=== PATIENT | male | born 1960 | race African-American/Black ===

== ENCOUNTER 2017-04-08 17:38 | Emergency (ER) | payer OTHER ==
[~2017-04-08] VITALS: Ht 185.4 cm; Wt 90.7 kg
--- NOTE | 2017-04-08 17:33 | Emergency Room Report ---
History of Present Illness General Chief Complaint: Abdominal Pain Source: Patient Present Illness HPI 56-year-old male presents to the emergency department complaining of nausea vomiting with cramping abdominal pain just prior to episodes of vomiting since this afternoon. Patient denies fevers, chills, constipation or diarrhea. Patient denies blood in the vomit or stool he denies dark tarry stools. Patient denies abdominal tenderness. Patient states that he did have recent dental procedures done and has been taking Motrin. Patient reports that after vomiting he felt sweaty and continued to feel nauseous and had dry heaving. Patient denies ill contacts or recent travel. Denies cardiac history . Denies CP, Palpitations, LOC, AMS, dizziness, Changes in Vision, Sensation, paresthesias, or a sudden severe headache. Allergies: Coded Allergies: No Known Allergies (Unverified , 04/08/17) Patient History Past Medical History: see triage record Past Surgical History: none Pertinent Family History: none Reviewed Nursing Documentation: PMH: Agreed Nursing Documentation-PMH Past Medical History: No History, Except For Hx Hypertension: Yes Review of Systems All Other Systems: negative except mentioned in HPI Physical Exam Vital Signs Date Time Temp Pulse Resp B/P (MAP) Pulse Ox O2 Delivery O2 Flow Rate FiO2 04/08/17 17:02 97.7 84 16 130/92 98 Room Air Sp02 EP Interpretation: reviewed, normal General Appearance: no apparent distress, alert, GCS 15, non-toxic Head: normocephalic, atraumatic, other - swelling to left lower jaw- where dental procedure was done, wisdom tooth removal . Eyes: bilateral eye normal inspection, bilateral eye PERRL ENT: hearing grossly normal, normal voice Neck: full range of motion Respiratory: lungs clear, normal breath sounds, speaking full sentences Cardiovascular #1: regular rate, rhythm Gastrointestinal: normal bowel sounds, non tender, soft, no guarding, other - Negative Gorham signs, Negative MacBurney's sign, Negative Rosvigns Sign, Negative Psoas, No Peritoneal signs. Musculoskeletal: back normal, gait/station normal, normal range of motion, non- tender Neurologic: alert, oriented x3, responsive, motor strength/tone normal, sensory intact, speech normal Psychiatric: judgement/insight normal, memory normal, mood/affect normal, no suicidal/homicidal ideation Skin: normal color, no rash, warm/dry, well hydrated Medical Decision Making PA Attestation Dr. pearce is my supervising Physician whom patient management has been discussed with. Diagnostic Impression: Primary Impression: Nausea & vomiting Qualified Codes: R11.2 - Nausea with vomiting, unspecified ER Course 56-year-old male presents to the emergency department complaining of nausea vomiting with cramping abdominal pain just prior to episodes of vomiting since this afternoon. Patient denies fevers, chills, constipation or diarrhea. Patient denies blood in the vomit or stool he denies dark tarry stools. Patient denies abdominal tenderness. Patient states that he did have recent dental procedures done and has been taking Motrin. Patient reports that after vomiting he felt sweaty and continued to feel nauseous and had dry heaving. Patient denies ill contacts or recent travel. Denies cardiac history . Denies CP, Palpitations, LOC, AMS, dizziness, Changes in Vision, Sensation, paresthesias, or a sudden severe headache. Ddx considered but are not limited to GE, colitis, acute appy, SBO, Cyclical Vomiting secondary to THC, Vital signs: pt. is afebrile, H&PE are most consistent with acute Gastritis, no cardiac hx, non-toxic appearance, no obvious dehydration. ORDERS: -None required at this time, the dx is clinical. ED INTERVENTIONS: -Zofran 4mg -Zantac -Mylanta - Oral Fluid challenge: passed. Pt reports improvement of his symptoms. DISCHARGE: At this time pt. is stable for d/c to home. Will provide printed patient care instructions, and any necessary prescriptions. Care plan and follow up instructions have been discussed with the patient prior to discharge. Last Vital Signs Date Time Temp Pulse Resp B/P (MAP) Pulse Ox O2 Delivery O2 Flow Rate FiO2 04/08/17 17:02 97.7 84 16 130/92 98 Room Air Disposition: HOME, SELF-CARE Condition: Stable Scripts Ranitidine Hcl* (ZANTAC*) 150 Mg Tablet 150 MG ORAL TWICE A DAY for 7 Days, #14 TAB Prov: Diana Champion P.A. 04/08/17 Ondansetron Odt* (ZOFRAN ODT*) 4 Mg Tab.rapdis 4 MG ORAL Q6H Y for Nausea & Vomiting, #15 TAB Prov: Diana Champion P.A. 04/08/17 Patient Instructions: Nausea and Vomiting, Adult, [id number] Additional Instructions: Take medications as directed. Follow up with a Primary Care Provider in 3-5 days, even if your symptoms have resolved. --Please review list of primary care clinics, if you do not already have a primary care provider Return sooner to ED if new symptoms occur, or current symptoms become worse. - Please note that this Emergency Department Report was dictated using [employer] technology software, occasionally this can lead to erroneous entry secondary to interpretation by the dictation equipment. Diana Champion Apr 08, 2017 17:33
[2017-04-08 17:41] VITALS: BP 130/92
[2017-04-08] MEDS ORDERED: ZOFRAN ODT4 MG ORAL (18:31)
[2017-04-08] MEDS ORDERED: ZANTAC150 MG ORAL (18:31)
[2017-04-08 18:47] VITALS: BP 122/84
== END 2017-04-08 18:45 | disposition home or self-care (01) ==
LOC: EDBD 17:38 → EMR 17:48
DX: R11.2 Nausea with vomiting, unspecified (principal); R10.9 Unspecified abdominal pain; I10 Essential (primary) hypertension
CPT/HCPCS: 99284